=== PATIENT | male | born 1970 | race Hispanic/Latino ===

== ENCOUNTER 2022-02-19 05:17 | Emergency (ER) | payer BC ==
[~2022-02-19] VITALS: Ht 167.6 cm; Wt 111.1 kg
[2022-02-19] MEDS ORDERED: VALACYCLOVIR1000 MG PO (05:49)
[2022-02-19] MEDS ORDERED: GLIPIZIDE ER5 MG PO (05:50)
[2022-02-19] MEDS ORDERED: METFORMIN HCL1000 MG PO (05:50)
[2022-02-19] MEDS ORDERED: LOVASTATIN40 MG PO (05:51)
[2022-02-19] MEDS ORDERED: LISINOPRIL10 MG PO (05:51)
--- NOTE | 2022-02-19 19:40 | EKG ---
[facility] [address] [facility] [place], [place] [address] Signed Normal sinus rhythm Normal ECG No previous ECGs available Confirmed by RUBIN LOPEZ MD ([id number] on 02/19/2022 7:40:42 PM Electronically Signed By: RUBIN LOPEZ MD 02/19/221939 PATIENT NAME: PRITCHETTMIRTA GARCÍA V Electrocardiogram DATE OF : 72 PHYSICIAN: RUBIN LOPEZ MD REPORT #: [id number] REPORT IS CONFIDENTIAL AND NOT TO BE RELEASED WITHOUT AUTHORIZATION
--- NOTE | 2022-02-19 19:41 | EKG ---
[facility] [address] [facility] [place], [place] [address] Signed Sinus bradycardia Otherwise normal ECG When compared with ECG of 19-FEB-2022 05:25, (Unconfirmed) No significant change was found Confirmed by RUBIN LOPEZ MD ([id number] on 02/19/2022 7:41:14 PM Electronically Signed By: RUBIN LOPEZ MD 02/19/221940 PATIENT NAME: MIRTA MIR V Electrocardiogram DATE OF : 72 PHYSICIAN: RUBIN LOPEZ MD REPORT #: [id number] REPORT IS CONFIDENTIAL AND NOT TO BE RELEASED WITHOUT AUTHORIZATION
== END 2022-02-19 09:05 | disposition home or self-care (01) ==
LOC: ED 05:17
DX: R07.9 Chest pain, unspecified (principal); E11.9 Type 2 diabetes mellitus without complications; E78.5 Hyperlipidemia, unspecified; I10 Essential (primary) hypertension; Z79.899 Other long term (current) drug therapy; Z79.4 Long term (current) use of insulin
CPT/HCPCS: 36415; 71045; 80053; 83735; 84484; 85025; 93005; 93010; 96374; 96375; 99285-25; A9270; J2405